=== PATIENT | female | born 1970 | race Caucasian/White ===

== ENCOUNTER → 2017-06-17 | Outpatient (CLI) | payer BC ==
--- NOTE | 2017-06-17 08:50 | Diagnostic Imaging Report ---
PROCEDURE: CT sinuses without contrast TECHNIQUE: Multiple contiguous axial images were obtained through the sinuses without the use of intravenous contrast. Coronal and sagittal reformations were then performed. INDICATION: Chronic sinusitis. Sinus drainage. FINDINGS: The sphenoidal and maxillary sinuses appear clear. The osteomeatal complexes are patent. The frontal sinuses appear clear. The ethmoidal air cells demonstrate very minimal mucosal thickening anteriorly. The nasal septum is deviated to the left. There is moderate mucosal thickening along the inferior turbinates without significant narrowing of the nasal passages. The mastoid air cells and middle ear cavities are clear. Soft tissues of the orbits and the face appear unremarkable. IMPRESSION: Mucosal thickening along the inferior turbinates and nasal septal dilatation to the left without significant narrowing of the nasal passages. Dictated by: Dictated on workstation # [id number]
== END ==
LOC: RAD 08:08
PROVIDERS: ATTEND Otolaryngology Otolaryngology/Facial Plastic Surgery
DX: J32.9 Chronic sinusitis, unspecified (principal)
CPT/HCPCS: 70486

== ENCOUNTER → 2017-09-17 | Outpatient (CLI) | payer BC ==
[~2017-09-17] MED LIST: GADOBUTROL 7.5 MMOL/7.5 ML (GADAVIST) VIAL IV ONE
--- NOTE | 2017-09-17 16:41 | Diagnostic Imaging Report ---
TECHNIQUE: Multiplanar pre- and post-contrast MR imaging of the brain is performed with thin section imaging performed through the internal auditory canals. INDICATION: Left hearing loss for approximately one year. FINDINGS: Ventricles and sulci are within normal limits for size. Rock and white matter signal intensity is unremarkable. There is no restricted diffusion to indicate infarct. The expected flow voids at the skull base are present. There is no abnormal mass effect or shift of midline structures. Seventh and eighth nerve complexes are symmetric and unremarkable. Inner ear structures are also symmetric and unremarkable. There is no evidence of mastoid air cell fluid or inflammation. Paranasal sinuses are unremarkable. There is no abnormal contrast enhancement. Cerebellopontine angles are clear, bilaterally. IMPRESSION: Unremarkable MRI of the brain and internal auditory canals. Dictated by: Dictated on workstation # [id number]
== END ==
LOC: RAD 15:00
PROVIDERS: ATTEND Otolaryngology Otolaryngology/Facial Plastic Surgery
DX: H91.92 Unspecified hearing loss, left ear (principal)
CPT/HCPCS: 70553

== ENCOUNTER 2020-03-16 15:08 | Emergency (ER) | payer BC, OTHER ==
[~2020-03-16] VITALS: Ht 157.4 cm; Wt 68.1 kg
--- NOTE | 2020-03-16 15:40 | ED Integumentary General ---
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 She was bit by a dog while at work, she is current on tetanus, last 2-3 years. Owners provided proof of rabies vaccine, dog has bit other people and known to be aggressive. She fell and injured her right thumb, complains of pain at the IP joint. No other injuries. Timing/Duration: this afternoon Location: extremities (bruising and lacerations to left forearm. Tenderness palpation right thumb) Associated Symptoms: denies symptoms Allergies and Home Medications Allergies Coded Allergies: No Known Drug Allergies (Unverified , 09/17/17) Home Medications Amoxicillin/Potassium Clav 1 Each Tablet, 1 EACH PO BID Prescribed by: IGNACIO BHATTI on 03/16/20 1545 Tramadol HCl 50 Mg Tablet, 50 MG PO Q6H PRN for PAIN Prescribed by: IGNACIO BHATTI on 03/16/20 1543 Patient Home Medication List Home Medication List Reviewed: Yes Review of Systems Review of Systems Constitutional: no symptoms reported, see HPI Musculoskeletal: see HPI, joint pain (right IP joint, thumb) Skin: see HPI, other (abrasion and laceration left forearm) All Other Systems Reviewed Negative Unless Noted: Yes Past Lrmflwu-Oovbex-Pxotha Hx Past Med/Social Hx: Reviewed Nursing Past Med/Soc Hx Patient Social History Recent Foreign Travel: No Contact w/Someone Who Travel: No Physical Exam Vital Signs Vital Signs - First Documented 03/16/20 15:12 Temp 36.7 Pulse 92 Resp 18 B/P (MAP) 137/108 (118) Pulse Ox 98 O2 Delivery Room Air Capillary Refill : General Appearance: WD/WN, no apparent distress HEENT: PERRL/EOMI, normal ENT inspection, TMs normal, pharynx normal Neck: non-tender, full range of motion, supple, normal inspection Cardiovascular: normal peripheral pulses, regular rate, rhythm Respiratory: chest non-tender, lungs clear, normal breath sounds Extremities: normal range of motion, normal capillary refill, inflammation (Left forearm), other (TTP right thumb, full ROM to IP and MCP, no instability. ) Neurologic/Psychiatric: no motor/sensory deficits, alert, normal mood/affect, oriented x 3 Skin Problem Location: upper extremities (left) Skin Problem Character: erythema, tenderness (marked swelling and early eccymosis. Neurovasc status intact bilat UEs. ), other (superficial abrasions and 1 cm laceration. ) Progress/Results/Core Measures Results/Orders My Orders Orders - IGNACIO BHATTI Forearm, Left, 2 Views (03/16/20 15:49) Finger(S) (03/16/20 15:49) Acetaminophen Tablet/Caplet (Tylenol T (03/16/20 16:46) Vital Signs/I&O 03/16/20 03/16/20 15:12 16:57 Temp 36.7 Pulse 92 89 Resp 18 18 B/P (MAP) 137/108 (118) 137/100 Pulse Ox 98 97 O2 Delivery Room Air Progress Progress Note : Time: 15:15 Progress Note Patient seen and evaluated will give Tylenol 650 mg for pain. Wound copiously irrigated with sterile saline and Hibiclens. Triple antibiotic ointment and sterile dressing applied. We'll obtain x-rays of the forearm and thumb. 1550 patient has no new complaints. X-ray findings were negative and discussed with the patient. Discharge instructions and return precautions reviewed. Diagnostic Imaging Diagonstic Imaging: Xray Plain Films/CT/US/NM/MRI: other (thumb) Comments NAME: ARVIND JYA [facility] REC#: [id number] PT STATUS: REG ER : 1970 PHYSICIAN: IGNACIO BHATTI ADMIT DATE: 03/16/20/ER Draft Date of Exam:03/16/20 FINGER(S) HISTORY: Bit by a dog, fell landing on the right thumb. COMPARISON: None. TECHNIQUE: Frontal view of the hand. Two views of the right thumb. FINDINGS: No acute fracture is seen in the right hand or right thumb. Alignment appears normal. Joint spaces are preserved. IMPRESSION: 1. No acute osseous abnormality is seen in the right hand or right thumb. Dictated on workstation # [id number] Dict: 03/16/20 1618 Trans: 03/16/20 1626 [id number] Interpreted by: ROYCE SAGE MD Electronically signed by: Reviewed: Reviewed by Me Diagonstic Imaging: Xray Plain Films/CT/US/NM/MRI: forearm Comments [place] NAME: ARVIND JAY [facility] REC#: [id number] PT STATUS: REG ER : 1970 PHYSICIAN: IGNACIO BHATTI ADMIT DATE: 03/16/20/ER Draft Date of Exam:03/16/20 FOREARM, LEFT, 2 VIEWS INDICATION: Pain status post injury. COMPARISON: None. FINDINGS: Two views of the left forearm were obtained and show no fractures, dislocations, or other acute bony abnormalities. Joint spaces are well maintained throughout. The soft tissues appear unremarkable. No radiopaque foreign bodies are identified. IMPRESSION: Unremarkable radiographic exam of the left forearm. Dictated on workstation # [id number] Dict: 03/16/20 1619 Trans: 03/16/20 1621 [facility] [id number] Interpreted by: JAX STEVENS MD Electronically signed by: Reviewed: Reviewed by Me Departure Impression Primary Impression: Dog bite Qualified Codes: W54.0XXA - Bitten by dog, initial encounter Disposition: HOME, SELF-CARE Condition: Improved Departure-Patient Inst. Decision time for Depature: 15:50 Referrals: CHEL JORDAN DO (PCP/Family) Primary Care Physician Patient Instructions: Animal Bites (DC) Add. Discharge Instructions: Keep wound clean and dry, irrigated with peroxide. Take antibiotic as prescribed. Cover wounds with Band-Aids. You may take Tylenol 650 mg alternating with ibuprofen 600 mg every 4 hours for pain and swelling. Ice to left wrist for 20 minutes every 2 hours for swelling. Elevate your left arm for swelling. Follow-up with your primary care provider if symptoms worsen or new complaints. Watch for signs of infection: Redness, discolored drainage, fever greater than 101, increased pain/swelling. Return to the emergency department for new, urgent health care needs. All discharge instructions reviewed with patient and/or family. Voiced understanding. Scripts Tramadol HCl (Tramadol HCl) 50 Mg Tablet 50 MG PO Q6H PRN for PAIN, #12 TAB 0 Refills Prov: IGNACIO BHATTI 03/16/20 Amoxicillin/Potassium Clav (Augmentin 875-125 Tablet) 1 Each Tablet 1 EACH PO BID, #14 TAB 0 Refills Prov: IGNACIO BHATTI 03/16/20 IGNACIO BHATTI Mar 16, 2020 15:40
[2020-03-16] MEDS ORDERED: AMOX-358 PO (15:45)
[2020-03-16] MEDS ORDERED: TRM50T PO (15:49)
--- NOTE | 2020-03-16 16:21 | Diagnostic Imaging Report ---
INDICATION: Pain status post injury. COMPARISON: None. FINDINGS: Two views of the left forearm were obtained and show no fractures, dislocations, or other acute bony abnormalities. Joint spaces are well maintained throughout. The soft tissues appear unremarkable. No radiopaque foreign bodies are identified. IMPRESSION: Unremarkable radiographic exam of the left forearm. Dictated by: Dictated on workstation # [id number]
--- NOTE | 2020-03-16 16:26 | Diagnostic Imaging Report ---
HISTORY: Bit by a dog, fell landing on the right thumb. COMPARISON: None. TECHNIQUE: Frontal view of the hand. Two views of the right thumb. FINDINGS: No acute fracture is seen in the right hand or right thumb. Alignment appears normal. Joint spaces are preserved. IMPRESSION: 1. No acute osseous abnormality is seen in the right hand or right thumb. Dictated by: Dictated on workstation # [id number]
[2020-03-16] MEDS ORDERED: ACETAMINOPHEN 325 MG TABLET PO STA (16:46)
[2020-03-16 16:57] VITALS: BP 137/100
== END 2020-03-16 16:57 | disposition home or self-care (01) ==
LOC: EDUNIT# 15:08 → ER 15:10
DX: S51.812A Laceration without foreign body of left forearm, initial encounter (principal); S69.81XA Other specified injuries of right wrist, hand and finger(s), initial encounter; W54.0XXA Bitten by dog, initial encounter
CPT/HCPCS: 73090; 73140

== ENCOUNTER → 2022-02-07 | Outpatient (CLI) | payer BC ==
[~2022-02-07] MED LIST changes: +AMOX-358 PO; -GADOBUTROL 7.5 MMOL/7.5 ML (GADAVIST) VIAL IV ONE; +TRM50T PO
--- NOTE | 2022-02-07 17:38 | Diagnostic Imaging Report ---
EXAMINATION: Right ankle 3 views HISTORY: Ankle injury COMPARISON: None available. FINDINGS: Small heel spur is present. 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 No acute fracture. Mortise is intact. IMPRESSION: No acute fracture. Dictated by: Dictated on workstation # [id number]
== END ==
LOC: RAD 16:47
PROVIDERS: ATTEND Nurse Practitioner
DX: M25.571 Pain in right ankle and joints of right foot (principal); Z68.29 Body mass index [BMI] 29.0-29.9, adult
CPT/HCPCS: 73610